=== PATIENT | male | born 1955 | race Caucasian/White ===

== ENCOUNTER 2022-10-08 06:41 | Inpatient (IN) | payer MEDICARE ==
[~2022-10-08] VITALS: Ht 170.2 cm; Wt 110.0 kg
[2022-10-08 07:03] LABS: BASOPHILS # (AUTO) 0.1 10^3/uL (0.0-0.1); BASOPHILS % (AUTO) 0 % (0-10); EOSINOPHILS % (AUTO) 0 % (0-10); HEMATOCRIT 56 % (40-54); HEMOGLOBIN 18.6 g/dL (13.3-17.7); LYMPHOCYTES # (AUTO) 0.6 10^3/uL (1.0-4.0); LYMPHOCYTES % (AUTO) 2 % (12-44); MEAN CORPUSCULAR HEMOGLOBIN 31 pg (25-34); MEAN CORPUSCULAR HGB CONC 33 g/dL (32-36); MEAN CORPUSCULAR VOLUME 93 fL (80-99); MEAN PLATELET VOLUME 10.1 fL (9.0-12.2); MONOCYTES # (AUTO) 1.1 10^3/uL (0.0-1.0); MONOCYTES % (AUTO) 4 % (0-12); NEUTROPHILS % (AUTO) 93 % (42-75); PLATELET COUNT 187 10^3/uL (130-400)
--- NOTE | 2022-10-08 07:03 | ED General ---
General Chief Complaint: General Problems/Pain Stated Complaint: INCOHERENT|SHAKY| FALLING Source of Information: Patient, Spouse (Independent historian as patient was slow to answer questions and did not remember everything from this am) (NABIL CALDWELL MD) History of Present Illness Date Seen by Provider: Oct 08, 2022 Time Seen by Provider: 06:45 Initial Comments 67-year-old male with PMH of HTN/active smoker, is here with complaints of altered mental status, and 2 falls earlier today morning. Patient's states that he has been shaky and appears incoherent to her. In the ER patient is able to answer all questions and follow all commands without too much difficulty. Patient appears lethargic and tired and is febrile. Patient states that he has been having a cold with nasal and chest congestion and cough for the past few days. Denies chest pain, shortness of breath, abdominal pain, nausea and vomiting, diarrhea, dizziness, headache, blurry vision, sensory loss, weakness. Patient does not have any cardiac or stroke history. (ROSEMARIE HOPE MD) Initial Comments Patient's spouse provides independent history on the patient as he was slow to answer questions and did not remember everything about this morning. 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 He had taken a longer time to unload his truck than usual on Saturday as well. Then he seemed to have a cold this weekend. This am he had 2 falls and was not able to make it to the bathroom in time and had urine incontinence. He has been shaking this morning and was febrile at 101F on arrival to ED. He is a smoker but denies shortness of breath, however, he was hypoxic with O2 sat 88-90% on room air on arrival to the ED. He has a medical history of Diabetes on Tradjenta, Hypertension, Hyperlipidemia, Fluid retention that he takes Furosemide to treat. He is allergic to Sulfa antibiotics and they cause a rash and trouble breathing. He does not use home O2 or breathing treatments. Both patient and spouse felt the area on his right srinivasan that started as a small red spot is now larger and hot to touch this am. He has had no drainage from the red area on his leg. (NABIL CALDWELL MD) Allergies and Home Medications Allergies Coded Allergies: Sulfa (Sulfonamide Antibiotics) (Verified Allergy, Severe, Shortness of Breath, 10/08/22) Patient Home Medication List Home Medication List Reviewed: Yes (ROSEMARIE HOPE MD) Home Medication List Reviewed: Yes (NABIL CALDWELL MD) Amlodipine Besylate (Amlodipine Besylate) 10 Mg Tablet, 10 MG PO DAILY, (Reported) Entered as Reported by: PATRICK BOLANOS on 10/08/221427 Last Action: Continued Aspirin (Aspirin EC) 81 Mg Tablet.dr, 81 MG PO DAILY, (Reported) Entered as Reported by: PATRICK BOLANOS on 10/08/221429 Last Action: Continued Furosemide (Furosemide) 40 Mg Tablet, 40 MG PO DAILY, (Reported) Entered as Reported by: PATRICK BOLANOS on 10/08/221436 Last Action: Continued Ketotifen Fumarate (Zaditor) 0.025 % (0.035 %) Drops, 1 DROP OS BID PRN for DRY EYES, (Reported) Entered as Reported by: PATRICK BOLANSO on 10/08/221438 Last Action: Held Linagliptin (Tradjenta) 5 Mg Tablet, 5 MG PO DAILY, (Reported) Entered as Reported by: PATRICK BOLANOS on 10/08/221427 Last Action: Held Lisinopril (Lisinopril) 40 Mg Tablet, 40 MG PO DAILY, (Reported) Entered as Reported by: PATRICK BOLANOS on 10/08/221426 Last Action: Held Mv-Min/Folic/K1/Lycopen/Lutein (Centrum Men 50 Plus Minis Tab) 150 Mcg-30 Mcg- 300 Mcg-150 Mcg Tablet, 1 EACH PO DAILY, (Reported) Entered as Reported by: PATRICK BOLANOS on 10/08/221429 Last Action: Held Nebivolol HCl (Bystolic) 10 Mg Tab, 10 MG PO DAILY, (Reported) Entered as Reported by: PATRICK BOLANOS on 10/08/221427 Last Action: Converted Moore-3/Dha/Epa/Fish Oil (Fish Oil 1,400 mg Softgel) 850 Mg-1,400 Mg Capsule, 1 EACH PO DAILY, (Reported) Entered as Reported by: PATRICK BOLANOS on 7/3/23 1430 Last Action: Converted Rosuvastatin Calcium (Rosuvastatin Calcium) 20 Mg Tablet, 20 MG PO DAILY, (Reported) Entered as Reported by: PATRICK BOLANOS on 10/08/22 1427 Last Action: Continued Vitamin B Complex (B Complex) 1 Each Tablet, 1 EACH PO DAILY, (Reported) Entered as Reported by: PATRICK BOLANOS on 10/08/22 1432 Last Action: Held Review of Systems Review of Systems Constitutional: see HPI, fever, malaise EENTM: see HPI, nose congestion Respiratory: cough Cardiovascular: no symptoms reported Gastrointestinal: no symptoms reported Genitourinary: no symptoms reported Musculoskeletal: no symptoms reported Skin: no symptoms reported Psychiatric/Neurological: Other (AMS) Hematologic/Lymphatic: No Symptoms Reported Immunological/Allergic: no symptoms reported (ROSEMARIE HOPE MD) Constitutional: chills, fever Respiratory: No short of breath Gastrointestinal: No nausea, No vomiting Genitourinary: incontinence (1 episode this am where he did not get to the toilet in time.) Skin: see HPI, change in color (area of redness on his right leg that has increased and gotten hot to touch since Saturday) Psychiatric/Neurological: See HPI (NABIL CALDWELL MD) Past Pxszvjz-Ddzxez-Jljnqk Hx Patient Social History Tobacco Use?: Yes Tobacco type used: Cigarettes Smoking Status: Current Everyday Smoker Substance use?: No (NABIL CALDWELL MD) Seasonal Allergies Seasonal Allergies: Yes (NABIL CALDWELL MD) Past Medical History Surgery/Hospitalization HX: Hypertension, Diabetes non-insulin dependent, Tobacco abuse, Fluid retention, Hyperlipidemia (NABIL CALDWELL MD) Physical Exam Vital Signs Vital Signs - First Documented 10/08/22 10/08/22 06:48 07:23 Temp 38.3 Pulse 87 Resp 20 B/P (MAP) 194/81 (118) Pulse Ox 90 O2 Delivery Room Air O2 Flow Rate 2.00 (NABIL CALDWELL MD) Vital Signs Capillary Refill : (ROSEMARIE HOPE MD) Height, Weight, BMI Height: '" Weight: lbs. oz. kg; BMI Method: General Appearance: No Apparent Distress, WD/WN HEENT: PERRL/EOMI, Normal ENT Inspection Neck: Full Range of Motion, Normal Inspection, Non Tender, Supple Respiratory: Chest Non Tender, Lungs Clear, Normal Breath Sounds, No Accessory Muscle Use, No Respiratory Distress Cardiovascular: Regular Rate, Rhythm Gastrointestinal: Normal Bowel Sounds, Non Tender, Soft Back: No CVA Tenderness Extremity: Normal Range of Motion, Swelling (Right-sided lower extremity shows more swelling than the left with an area of erythema on the anterior lower leg. Not warm to touch.) Neurologic/Psychiatric: Alert, Oriented x3 (Patient able to answer all questions and follow commands in the ER. Patient just appears lethargic.), No Motor/Sensory Deficits, Normal Mood/Affect, taxation accountant II-XII Norm as Tested Skin: Normal Color Lymphatic: No Adenopathy (ROSEMARIE HOPE MD) General Appearance: Obese, Other (slow to answer questions) Cardiovascular: Normal Peripheral Pulses Rectal: Deferred Extremity: No Non Tender (tender, red, warm area to right lower extremity without fluctuance or drainage); Pedal Edema (trace to 1+ BLE edema) Skin: Erythema (right lower extremity anterior srinivasan red, warm, tender to palpation area without fluctuance or drainage) (NABIL CALDWELL MD) Focused Exam Lactate Level 10/08/22 06:50: Lactic Acid Level 1.96 (NABIL CALDWELL MD) Lactic Acid Level Laboratory Tests Test 10/08/22 06:50 Lactic Acid Level 1.96 MMOL/L (0.50-2.00) (NABIL CALDWELL MD) Progress/Results/Core Measures Suspected Sepsis SIRS Temperature: Pulse: Respiratory Rate: Laboratory Tests 10/08/22 06:50: White Blood Count 29.0H Blood Pressure / Mean: 10/08/22 06:50: Lactic Acid Level 1.96 Laboratory Tests 10/08/22 06:50: Creatinine 1.40H, INR Comment 1.3, Platelet Count 187, Total Bilirubin 1.0 (ROSEMARIE HOPE MD) Results/Orders Lab Results Laboratory Tests Test 10/08/22 06:50 10/08/22 08:12 Range/Units White Blood Count 29.0 H 4.3-11.0 10^3/uL Red Blood Count 6.03 H 4.30-5.52 10^6/uL Hemoglobin 18.6 H 13.3-17.7 g/dL Hematocrit 56 H 40-54 % Mean Corpuscular Volume 93 80-99 fL Mean Corpuscular Hemoglobin 31 25-34 pg Mean Corpuscular Hemoglobin Concent 33 32-36 g/dL Red Cell Distribution Width 13.4 10.0-14.5 % Platelet Count 187 130-400 10^3/uL Mean Platelet Volume 10.1 9.0-12.2 fL Immature Granulocyte % (Auto) 1 % Neutrophils (%) (Auto) 93 H 42-75 % Lymphocytes (%) (Auto) 2 L 12-44 % Monocytes (%) (Auto) 4 0-12 % Eosinophils (%) (Auto) 0 0-10 % Basophils (%) (Auto) 0 0-10 % Neutrophils # (Auto) 27.0 H 1.8-7.8 10^3/uL Lymphocytes # (Auto) 0.6 L 1.0-4.0 10^3/uL Monocytes # (Auto) 1.1 H 0.0-1.0 10^3/uL Eosinophils # (Auto) 0.0 0.0-0.3 10^3/uL Basophils # (Auto) 0.1 0.0-0.1 10^3/uL Immature Granulocyte # (Auto) 0.3 H 0.0-0.1 10^3/uL Neutrophils % (Manual) 76 % Lymphocytes % (Manual) 2 % Monocytes % (Manual) 3 % Eosinophils % (Manual) 0 % Basophils % (Manual) 0 % Band Neutrophils 19 % Platelet Estimate NORMAL Rouleau MOD Blood Morphology Comment NORMAL Prothrombin Time 16.5 H 12.2-14.7 SEC INR Comment 1.3 0.8-1.4 Activated Partial Thromboplast Time 29 24-35 SEC Sodium Level 137 135-145 MMOL/L Potassium Level 3.8 3.6-5.0 MMOL/L Chloride Level 98 98-107 MMOL/L Carbon Dioxide Level 25 21-32 MMOL/L Anion Gap 14 5-14 MMOL/L Blood Urea Nitrogen 20 H 7-18 MG/DL Creatinine 1.40 H 0.60-1.30 MG/DL Estimat Glomerular Filtration Rate 56 BUN/Creatinine Ratio 14 Glucose Level 193 H 70-105 MG/DL Lactic Acid Level 1.96 0.50-2.00 MMOL/L Calcium Level 9.6 8.5-10.1 MG/DL Corrected Calcium 10.1 8.5-10.1 MG/DL Magnesium Level 1.8 1.6-2.4 MG/DL Total Bilirubin 1.0 0.1-1.0 MG/DL Aspartate Amino Transf (AST/SGOT) 16 5-34 U/L Alanine Aminotransferase (ALT/SGPT) 20 0-55 U/L Alkaline Phosphatase 98 40-136 U/L Troponin I < 0.30 <0.30 NG/ML Pro-B-Type Natriuretic Peptide 2713.0 H <125.0 PG/ML Total Protein 7.0 6.4-8.2 GM/DL Albumin 3.4 3.2-4.5 GM/DL Serum Alcohol < 10 <10 MG/DL Urine Color DK YELLOW Urine Clarity CLEAR Urine pH 6.0 5-9 Urine Specific [place] >=1.030 1.016-1.022 Urine Protein 3+ H NEGATIVE Urine Glucose (UA) NEGATIVE NEGATIVE Urine Ketones NEGATIVE NEGATIVE Urine Nitrite NEGATIVE NEGATIVE Urine Bilirubin NEGATIVE NEGATIVE Urine Urobilinogen 2.0 < = 1.0 MG/DL Urine Leukocyte Esterase NEGATIVE NEGATIVE Urine RBC (Auto) 3+ H NEGATIVE Urine RBC 25-50 H /HPF Urine WBC NONE /HPF Urine Squamous Epithelial Cells NONE /HPF Urine Crystals NONE /LPF Urine Bacteria FEW H /HPF Urine Casts NONE /LPF Urine Mucus SMALL H /LPF Urine Culture Indicated NO Urine Opiates Screen NEGATIVE NEGATIVE Urine Oxycodone Screen NEGATIVE NEGATIVE Urine Methadone Screen NEGATIVE NEGATIVE Urine Propoxyphene Screen NEGATIVE NEGATIVE Urine Barbiturates Screen NEGATIVE NEGATIVE Ur Tricyclic Antidepressants Screen NEGATIVE NEGATIVE Urine Phencyclidine Screen NEGATIVE NEGATIVE Urine Amphetamines Screen NEGATIVE NEGATIVE Urine Methamphetamines Screen NEGATIVE NEGATIVE Urine Benzodiazepines Screen NEGATIVE NEGATIVE Urine Cocaine Screen NEGATIVE NEGATIVE Urine Cannabinoids Screen NEGATIVE NEGATIVE (NABIL CALDWELL MD) My Orders Orders - NABIL CALDWELL MD O2 (10/08/22 07:20) Ns Iv 1000 Ml (Sodium Chloride 0.9%) (10/08/22 07:35) Albuterol/Ipra Inhalation Soln (Duoneb I (10/08/22 07:35) Acetaminophen Tablet (Tylenol Tablet) (10/08/22 07:35) Piperacillin Sodium/Tazobactam (Zosyn Vi (10/08/22 07:35) Vancomycin Injection (Vancomycin Injecti (10/08/22 07:35) Svn Small Volume Nebulizer (10/08/22 07:35) Ed Admission (Communication) (10/08/22 07:50) (NABIL CALDWELL MD) Vital Signs/I&O 10/08/22 10/08/22 10/08/22 06:48 07:23 07:51 Temp 38.3 38.4 Pulse 87 Resp 20 B/P (MAP) 194/81 (118) Pulse Ox 90 93 O2 Delivery Room Air Nasal Cannula O2 Flow Rate 2.00 (NABIL CALDWELL MD) Vital Signs/I&O Capillary Refill : (ROSEMARIE HOPE MD) Progress Note : Progress Note 1. AMS/ GENERALIZED WEAKNESS: - CT HEAD - CXR: - EKG: non-ischemic - Troponin - CBC/ CMP - UA/ UDS - Lactic acid - Blood cultures sent - Signed out pt to morning physician for follow up of labs and imaging. (ROSEMARIE HOPE MD) Progress Note #1: Time: 07:45 Progress Note I assumed care of the patient at [address] Hope. On review of his test results he had a chest x-ray that radiologist read out as having some cardiomega ly and mild pulmonary vascular congestion but no infiltrate. CT scan of the head without IV contrast showed senescent and microvascular changes but no acute mass, bleeding, stroke. His complete blood count was elevated with a white blood cell count of 29,000 and automated differential of 93%. He appeared to be a little hemoconcentrated with a hemoglobin of 18.6. Platelets were normal at 187. His lactic acid was normal at 1.96. On his comprehensive metabolic profile he did have some mild renal insufficiency and/or dehydration with a creatinine of 20 and a BUN of 1.4. Glucose was slightly elevated to 193. His troponin was negative at less than 0.3. He had a slight increase of his proBNP to 2713. Will add on a Liter of Ns IV fluid bolus for hydration, acetaminophen 1 g p.o. for his fever of 38.3 Celsius on arrival. Placed on supplemental oxygen at 2 L by nasal cannula to help with his hypoxia of 88 to 90% on room air. Try DuoNeb breathing treatment since he is a daily smoker he might have a COPD compo nent that is contributing to his low oxygen and that could also be affecting his mentation. Since he does have SIRS criteria with elevated white blood cell count and hypoxia will treat with Zosyn 4.5 g IV x1 and vancomycin 1 g IV x1 for the cellulitis of the right lower extremity in a diabetic. I called and spoke with Dr. Laureano the on-call hospitalist for [facility] today. I reviewed the above lab and radiology findings and plan. With him having the hypoxia, not having home oxygen, SIRS criteria and diabetes will admit to a [facility] bed for continued antibiotics and supplemental oxygen. Progress Note #2: Progress Note Patient remained stable during ED stay and was more coherent on Oxygen. He had an extended wait in the ED for transport to get him to [facility] due to EMS transporting other patients with higher acuity. (NABIL CALDWELL MD) ECG Initial ECG Impression Date: Oct 08, 2022 Initial ECG Impression Time: 06:56 Initial ECG Rate: 86 Initial ECG Rhythm: Normal Sinus Initial ECG Comparisson: No Previous ECG Available Comment On my personal interpretation and review his electrocardiogram shows a normal sinus rhythm with a heart rate of 86 bpm. [place] interval 194 ms. He has a right bundle branch block and intraventricular conduction delay. He has a QT interval 395 ms and a QTc interval 438 ms. He has no acute ST elevation. There is no prior tracings available for comparison. (NABIL CALDWELL MD) Diagnostic Imaging Diagonstic Imaging: Xray Plain Films/CT/US/NM/MRI: chest Comments [facility], [place] NAME: JOSE A KEARNS [facility] REC#: [id number] PT STATUS: REG ER : 1955 PHYSICIAN: ROSEMARIE HOPE MD ADMIT DATE: 10/08/22/ER FS Draft Date of Exam:10/08/22 CHEST 1 VIEW AP/PA ONLY INDICATION: Altered mental status. No prior examination available for comparison. There is generalized cardiomegaly and mild central pulmonary venous congestion. The mediastinal configuration is unremarkable. There is no pleural effusion, pneumothorax, or pneumonia. The visualized osseous structures are unremarkable. IMPRESSION: Cardiomegaly and mild central pulmonary venous congestion. Dictated on workstation # [id number] Dict: 10/08/22 0710 Trans: 10/08/22 0713 CVB [id number] Interpreted by: PETAR TALAVERA MD Electronically signed by: Reviewed: Reviewed by Me Diagonstic Imaging: CT Plain Films/CT/US/NM/MRI: head Comments [facility], [place] NAME: JOSE A KEARNS REC#: [id number] PT STATUS: REG ER : 1955 PHYSICIAN: ROSEMARIE HOPE MD ADMIT DATE: 10/08/22/ER FS Draft Date of Exam:10/08/22 CT HEAD WO-R/O STROKE PROCEDURE: CT head wo r/o stroke. TECHNIQUE: Multiple contiguous axial images were obtained through the brain without the use of intravenous contrast. Auto Exposure Controls were utilized during the CT exam to meet ALARA standards for radiation dose reduction. INDICATION: Altered mental status No prior examination available for comparison. FINDINGS: There is prominence of the ventricles and sulci. There is no hydrocephalus or cerebral edema. There is no midline shift or mass-effect. There is no intracranial mass, hemorrhage, or extra-axial fluid collection. There is some diffuse decreased attenuation of the periventricular white matter which is nonspecific. The visualized paranasal sinuses and mastoid air cells are clear. There are no regional areas of decreased attenuation appreciated to suggest an acute CVA. IMPRESSION: 1. No acute intracranial process. 2. Age-appropriate atrophy. 3. Decreased attenuation of the periventricular white matter which is nonspecific, however, likely reflects senescent change and/or chronic small vessel ischemic disease. If there is high clinical concern for an acute CVA, further evaluation with MRI should be considered. Dictated on workstation # [id number] Dict: 10/08/22710 Trans: 10/08/22712 CVB [id number] Interpreted by: PETAR TALAVERA MD Electronically signed by: Reviewed: Reviewed by Me (NABIL CALDWELL MD) Departure Communication (Admissions) Time/Spoke to Admitting Phy: 07:45 On review of his test results he had a chest x-ray that radiologist read out as having some cardiomegaly and mild pulmonary vascular congestion but no infiltrate. CT scan of the head without IV contrast showed senescent and microvascular changes but no acute mass, bleeding, stroke. His complete blood count was elevated with a white blood cell count of 29,000 and automated differential of 93%. He appeared to be a little hemoconcentrated with a hemoglobin of 18.6. Platelets were normal at 187. His lactic acid was normal at 1.96. On his comprehensive metabolic profile he did have some mild renal insufficiency and/or dehydration with a creatinine of 20 and a BUN of 1.4. Glucose was slightly elevated to 193. His troponin was negative at less than 0.3. He had a slight increase of his proBNP to 2713. Will add on a Liter of Ns IV fluid bolus for hydration, acetaminophen 1 g p.o. for his fever of 38.3 Celsius on arrival. Placed on supplemental oxygen at 2 L by nasal cannula to help with his hypoxia of 88 to 90% on room air. Try DuoNeb breathing treatment since he is a daily smoker he might have a COPD component that is contributing to his low oxygen and that could also be affecting his mentation. Since he does have SIRS criteria with elevated white blood cell count and hypoxia will treat with Zosyn 4.5 g IV x1 and vancomycin 1 g IV x1 for the cellulitis of the right lower extremity in a diabetic. I called and spoke with Dr. Laureano the on-call hospitalist for [facility] today. I reviewed the above lab and radiology findings and plan. With him having the hypoxia, not having home oxygen, SIRS criteria and diabetes will admit to a [facility] bed for continued antibiotics and supplemental oxygen. (NABIL CALDWELL MD) Impression Primary Impression: Cellulitis of right lower extremity Additional Impressions: AMS (altered mental status) Qualified Codes: R41.82 - Altered mental status, unspecified Generalized weakness SIRS due to infectious process without acute organ dysfunction Hypoxemia Renal insufficiency Disposition: 30 STILL A PATIENT Condition: Stable Admissions Decision to Admit Reason: Admit from ER (General) Decision to Admit/Date: Oct 08, 2022 Time/Decision to Admit Time: 07:45 (NABIL CALDWELL MD) Departure-Patient Inst. Referrals: MARCOS NEVILLE MD (PCP/Family) Primary Care Physician ROSEMARIE HOPE MD Oct 08, 2022 07:03 NABIL CALDWELL MD Oct 08, 2022 07:50
--- NOTE | 2022-10-08 07:13 | Diagnostic Imaging Report ---
PROCEDURE: CT head wo r/o stroke. TECHNIQUE: Multiple contiguous axial images were obtained through the brain without the use of intravenous contrast. Auto Exposure Controls were utilized during the CT exam to meet ALARA standards for radiation dose reduction. INDICATION: Altered mental status No prior examination available for comparison. FINDINGS: There is prominence of the ventricles and sulci. There is no hydrocephalus or cerebral edema. There is no midline shift or mass-effect. There is no intracranial mass, hemorrhage, or extra-axial fluid collection. There is some diffuse decreased attenuation of the periventricular white matter which is nonspecific. The visualized paranasal sinuses and mastoid air cells are clear. There are no regional areas of decreased attenuation appreciated to suggest an acute CVA. IMPRESSION: 1. No acute intracranial process. 2. Age-appropriate atrophy. 3. Decreased attenuation of the periventricular white matter which is nonspecific, however, likely reflects senescent change and/or chronic small vessel ischemic disease. If there is high clinical concern for an acute CVA, further evaluation with MRI should be considered. Dictated by: Dictated on workstation # [id number]
--- NOTE | 2022-10-08 07:13 | Diagnostic Imaging Report ---
INDICATION: Altered mental status. No prior examination available for comparison. There is generalized cardiomegaly and mild central pulmonary venous congestion. The mediastinal configuration is unremarkable. There is no pleural effusion, pneumothorax, or pneumonia. The visualized osseous structures are unremarkable. IMPRESSION: Cardiomegaly and mild central pulmonary venous congestion. Dictated by: Dictated on workstation # [id number]
[2022-10-08 07:22] LABS: INR 1.3 (0.8-1.4); PROTHROMBIN TIME PATIENT 16.5 SEC (12.2-14.7)
[2022-10-08] MEDS ORDERED: VANCOMYCIN INJECTION 1,000 MG in NS (IVPB) 250 ML IV STA (07:35)
[2022-10-08] MEDS ORDERED: PIPERACILLIN SODIUM/TAZOBACTAM 4.5 GM in NS (IVPB) 100 ML IV STA (07:35)
[2022-10-08] MEDS ORDERED: NS IV 1000 ML 1,000 ML IV STA (07:35)
[2022-10-08] MEDS ORDERED: RT-ALBUTEROL/IPRATROPIUM 3 ML (DUONEB) VIAL INH STA (07:35)
[2022-10-08] MEDS ORDERED: ACETAMINOPHEN 500 MG TAB (TYLENOL) PO STA (07:35)
[2022-10-08 07:36] LABS: ALANINE AMINOTRANSFERASE 20 U/L (0-55); ALKALINE PHOSPHATASE 98 U/L (40-136); BUN/CREATININE RATIO 14; CALCIUM 9.6 MG/DL (8.5-10.1); CARBON DIOXIDE 25 MMOL/L (21-32); CHLORIDE 98 MMOL/L (98-107); GFR ESTIMATED 56; GLUCOSE 193 MG/DL (70-105); MAGNESIUM 1.8 MG/DL (1.6-2.4); POTASSIUM 3.8 MMOL/L (3.6-5.0); SODIUM 137 MMOL/L (135-145)
[2022-10-08 07:37] LABS: ALBUMIN 3.4 GM/DL (3.2-4.5)
[2022-10-08 07:51] LABS: BAND NEUTROPHILS 19 %; NEUTROPHILS % (MANUAL) 76 %
[2022-10-08 07:52] LABS: BASOPHILS % (MANUAL) 0 %; EOSINOPHILS % (MANUAL) 0 %; LYMPHOCYTES % (MANUAL) 2 %; MONOCYTES % (MANUAL) 3 %; PLATELET ESTIMATE NORMAL; RBC MORPH NORMAL; ROULEAUX MOD
[2022-10-08 08:17] LABS: BILIRUBIN,URINE NEGATIVE (NEGATIVE); CLARITY,URINE CLEAR; GLUCOSE, URINE (UA) NEGATIVE (NEGATIVE); KETONES,URINE NEGATIVE (NEGATIVE); LEUKOCYTE ESTERASE ,URINE NEGATIVE (NEGATIVE); NITRITE,URINE NEGATIVE (NEGATIVE); PROTEIN,URINE 3+ (NEGATIVE)
[2022-10-08 08:23] LABS: COLOR,URINE DK YELLOW
[2022-10-08 08:26] LABS: BACTERIA,URINE FEW /HPF; RBC,URINE 25-50 /HPF
[2022-10-08 08:29] LABS: AMPHETAMINE SCREEN, URINE NEGATIVE (NEGATIVE); BARBITURATE SCREEN URINE NEGATIVE (NEGATIVE); BENZODIAZEPINES SCREEN URINE NEGATIVE (NEGATIVE); CANNABINOID SCREEN, URINE NEGATIVE (NEGATIVE); COCAINE SCREEN URINE NEGATIVE (NEGATIVE); METHADONE STAT NEGATIVE (NEGATIVE); OPIATE SCREEN URINE NEGATIVE (NEGATIVE); OXYCODONE STAT NEGATIVE (NEGATIVE); PROPOXYPHENE STAT NEGATIVE (NEGATIVE); TRICYCLIC ANTIDEPRESSANTS SCRE NEGATIVE (NEGATIVE)
[2022-10-08] MEDS ORDERED: VANCOMYCIN INJECTION 0.1 MG in NS (IVPB) 250 ML IV SCH (11:45)
[2022-10-08] MEDS: VANCOMYCIN 1500MG/300ML PREMIX IV SCH (13:38)
[2022-10-08 13:45] VITALS: BP 160/74
--- NOTE | 2022-10-08 14:24 | History & Physical ---
HPI History of Present Illness: Pt states he came to the hospital because "I was being stupid". states he was incoherent and shaking, his blood sugar was 215. Started Saturday morning, but worse today, was trying to drink out of his medicine bottle, couldn't answer simple questions. He was shaking but they didn't think to take his temperature. He was just wanting to sleep, hard to wake up. noticed large red raymond on leg Saturday morning. Source: patient, family Date seen by provider: Oct 08, 2022 Time Seen by Provider: 14:20 Attending Physician Skylar Toro MD PCP Admitting Physician: Matt Laureano MD Attending Physician: Matt Laureano MD Consult Date of Admission Oct 08, 2022 at 11:09 Home Medications Home Medications Reviewed patient Home Medication Reconciliation performed by pharmacy medication reconciliations master technician and/or nursing. Patients Allergies have been reviewed. Allergies Coded Allergies: Sulfa (Sulfonamide Antibiotics) (Verified Allergy, Severe, Shortness of Breath, 10/08/22) [id number] Hx Patient Social History Smoking Status: Heavy Tobacco Smoker Alcohol Use?: No Tobacco type used: Cigarettes Immunizations Up To Date Influenza Vaccine Up-to-Date: No; Not Current Past Medical History PMHx: HTN HLD Prediabetes SurgHx: Appendectomy at age 10 Incarcerated abdominal hernia 2004 Family Medical History Significant Family History: Heart Disease, Diabetes Review of Systems ([facility]) Constitutional: malaise EENTM: nose congestion; No throat pain Respiratory: No cough, No short of breath Cardiovascular: No chest pain Gastrointestinal: No abdominal pain, No constipation, No diarrhea, No nausea, No vomiting Genitourinary: No dysuria Musculoskeletal: joint pain (chronic), muscle pain (chronic) Skin: see HPI Reviewed Test Results Reviewed Test Results Lab Laboratory Tests Test 10/08/22 06:50 10/08/22 08:12 Range/Units White Blood Count 29.0 H 4.3-11.0 10^3/uL Red Blood Count 6.03 H 4.30-5.52 10^6/uL Hemoglobin 18.6 H 13.3-17.7 g/dL Hematocrit 56 H 40-54 % Mean Corpuscular Volume 93 80-99 fL Mean Corpuscular Hemoglobin 31 25-34 pg Mean Corpuscular Hemoglobin Concent 33 32-36 g/dL Red Cell Distribution Width 13.4 10.0-14.5 % Platelet Count 187 130-400 10^3/uL Mean Platelet Volume 10.1 9.0-12.2 fL Immature Granulocyte % (Auto) 1 % Neutrophils (%) (Auto) 93 H 42-75 % Lymphocytes (%) (Auto) 2 L 12-44 % Monocytes (%) (Auto) 4 0-12 % Eosinophils (%) (Auto) 0 0-10 % Basophils (%) (Auto) 0 0-10 % Neutrophils # (Auto) 27.0 H 1.8-7.8 10^3/uL Lymphocytes # (Auto) 0.6 L 1.0-4.0 10^3/uL Monocytes # (Auto) 1.1 H 0.0-1.0 10^3/uL Eosinophils # (Auto) 0.0 0.0-0.3 10^3/uL Basophils # (Auto) 0.1 0.0-0.1 10^3/uL Immature Granulocyte # (Auto) 0.3 H 0.0-0.1 10^3/uL Neutrophils % (Manual) 76 % Lymphocytes % (Manual) 2 % Monocytes % (Manual) 3 % Eosinophils % (Manual) 0 % Basophils % (Manual) 0 % Band Neutrophils 19 % Platelet Estimate NORMAL Rouleau MOD Blood Morphology Comment NORMAL Prothrombin Time 16.5 H 12.2-14.7 SEC INR Comment 1.3 0.8-1.4 Activated Partial Thromboplast Time 29 24-35 SEC Sodium Level 137 135-145 MMOL/L Potassium Level 3.8 3.6-5.0 MMOL/L Chloride Level 98 98-107 MMOL/L Carbon Dioxide Level 25 21-32 MMOL/L Anion Gap 14 5-14 MMOL/L Blood Urea Nitrogen 20 H 7-18 MG/DL Creatinine 1.40 H 0.60-1.30 MG/DL Estimat Glomerular Filtration Rate 56 BUN/Creatinine Ratio 14 Glucose Level 193 H 70-105 MG/DL Lactic Acid Level 1.96 0.50-2.00 MMOL/L Calcium Level 9.6 8.5-10.1 MG/DL Corrected Calcium 10.1 8.5-10.1 MG/DL Magnesium Level 1.8 1.6-2.4 MG/DL Total Bilirubin 1.0 0.1-1.0 MG/DL Aspartate Amino Transf (AST/SGOT) 16 5-34 U/L Alanine Aminotransferase (ALT/SGPT) 20 0-55 U/L Alkaline Phosphatase 98 40-136 U/L Troponin I < 0.30 <0.30 NG/ML Pro-B-Type Natriuretic Peptide 2713.0 H <125.0 PG/ML Total Protein 7.0 6.4-8.2 GM/DL Albumin 3.4 3.2-4.5 GM/DL Serum Alcohol < 10 <10 MG/DL Urine Color DK YELLOW Urine Clarity CLEAR Urine pH 6.0 5-9 Urine Specific [place] >=1.030 1.016-1.022 Urine Protein 3+ H NEGATIVE Urine Glucose (UA) NEGATIVE NEGATIVE Urine Ketones NEGATIVE NEGATIVE Urine Nitrite NEGATIVE NEGATIVE Urine Bilirubin NEGATIVE NEGATIVE Urine Urobilinogen 2.0 < = 1.0 MG/DL Urine Leukocyte Esterase NEGATIVE NEGATIVE Urine RBC (Auto) 3+ H NEGATIVE Urine RBC 25-50 H /HPF Urine WBC NONE /HPF Urine Squamous Epithelial Cells NONE /HPF Urine Crystals NONE /LPF Urine Bacteria FEW H /HPF Urine Casts NONE /LPF Urine Mucus SMALL H /LPF Urine Culture Indicated NO Urine Opiates Screen NEGATIVE NEGATIVE Urine Oxycodone Screen NEGATIVE NEGATIVE Urine Methadone Screen NEGATIVE NEGATIVE Urine Propoxyphene Screen NEGATIVE NEGATIVE Urine Barbiturates Screen NEGATIVE NEGATIVE Ur Tricyclic Antidepressants Screen NEGATIVE NEGATIVE Urine Phencyclidine Screen NEGATIVE NEGATIVE Urine Amphetamines Screen NEGATIVE NEGATIVE Urine Methamphetamines Screen NEGATIVE NEGATIVE Urine Benzodiazepines Screen NEGATIVE NEGATIVE Urine Cocaine Screen NEGATIVE NEGATIVE Urine Cannabinoids Screen NEGATIVE NEGATIVE Radiology CT head 10/08/22: IMPRESSION: 1. No acute intracranial process. 2. Age-appropriate atrophy. 3. Decreased attenuation of the periventricular white matter which is nonspecific, however, likely reflects senescent change and/or chronic small vessel ischemic disease. If there is high clinical concern for an acute CVA, further evaluation with MRI should be considered. CXR 10/08/22: IMPRESSION: Cardiomegaly and mild central pulmonary venous congestion. Physical Exam-([facility]) Physical Exam Vital Signs VS - Last 72 Hours, by Label 10/08/22 10/08/22 10/08/22 10/08/22 06:48 07:23 07:51 10:45 Temp 38.3 38.4 37.6 Pulse 87 76 Resp 20 15 B/P (MAP) 194/81 (118) 139/95 Pulse Ox 90 93 96 O2 Delivery Room Air Nasal Cannula Nasal Cannula O2 Flow Rate 2.00 2.00 10/08/22 10/08/22 11:15 13:45 Temp 36.9 Pulse 63 Resp 19 B/P (MAP) 160/74 (102) Pulse Ox 96 O2 Delivery Nasal Cannula Nasal Cannula O2 Flow Rate 2.00 2.00 Capillary Refill : Less Than 3 Seconds General Appearance: WD/WN, no apparent distress Respiratory: lungs clear, normal breath sounds Cardiovascular: regular rate, rhythm, no murmur Peripheral Pulses: 2+ Dorsalis Pedis (R), 2+ Left Dors-Pedis (L) Gastrointestinal: normal bowel sounds, non tender, distended Extremities: normal capillary refill, pedal edema (trace to 1+) Neurologic/Psychiatric: alert, normal mood/affect, oriented x 3 Skin: other (circumferential area of erythema on right lower leg) Assessment/Plan Assessment/Plan Admission Status: Inpatient Order (span 2 midnights) Reason for Inpatient Admission: sepsis (1) Sepsis Status: Acute Assessment & Plan: Secondary to cellulitis (2) Cellulitis of right lower extremity Status: Acute Assessment & Plan: Started on Zosyn and Vancomycin on admit. (3) Hypoxemia Status: Acute Assessment & Plan: Uncertain etiology, not on home O2, possibly some pulmonary edema, resume home lasix and monitor closely. (4) Renal insufficiency Status: Acute Assessment & Plan: Suspect secondary to sepsis and hypovolemia from poor intake. Will give IVF and monitor closely given pulmonary edema. (5) Diabetes mellitus, type 2 Status: Chronic Assessment & Plan: Diabetic diet, sliding scale insulin (6) Hypertension Status: Chronic Assessment & Plan: Resume home meds Qualifiers: Qualified Codes: I10 - Essential (primary) hypertension (7) Chronic kidney disease Status: Chronic Assessment & Plan: Baseline creatinine in clinic appears to be around 1.3 (8) DVT prophylaxis Status: Acute Assessment & Plan: Enoxaparin MATT LAUREANO MD Oct 08, 2022 14:24
[2022-10-08] MEDS ORDERED: LISI40TA9 PO (14:27)
[2022-10-08] MEDS ORDERED: ROSU20TA32 PO (14:27)
[2022-10-08] MEDS ORDERED: NFNEB10T PO (14:28)
[2022-10-08] MEDS ORDERED: LINA5TAB PO (14:28)
[2022-10-08] MEDS ORDERED: AMLO-251 PO (14:28)
[2022-10-08] MEDS ORDERED: FLUT16SP22 NS (14:29)
[2022-10-08] MEDS ORDERED: AZEL137S11 NS (14:29)
[2022-10-08] MEDS ORDERED: ASPI-1238 PO (14:30)
[2022-10-08] MEDS ORDERED: ONDANSETRON 4 MG (ZOFRAN) ORAL DISSOLVE TAB PO PRN (14:30)
[2022-10-08] MEDS ORDERED: MV-M-9 PO (14:30)
[2022-10-08] MEDS ORDERED: [UNRECOGNIZED DRUG - CODE] PO (14:30)
[2022-10-08] MEDS ORDERED: VITA0.4T2 PO (14:31)
[2022-10-08] MEDS ORDERED: VITA-189 PO (14:32)
[2022-10-08] MEDS ORDERED: FURO40TA4 PO (14:37)
[2022-10-08] MEDS ORDERED: KETO5DRO70 OS (14:39)
[2022-10-08] MEDS: PIPERACILLIN SODIUM/TAZOBACTAM 4.5 GM in NS (IVPB) 100 ML IV SCH ×2 (15:06→21:52)
[2022-10-08 16:00] VITALS: BP 184/73
[2022-10-08] MEDS: NS IV 1000 ML 1,000 ML IV SCH (16:01)
[2022-10-08] MEDS: ENOXAPARIN 40 MG/0.4 ML (LOVENOX) SYR SQ SCH (16:02)
[2022-10-08] MEDS: inSUlin ASPART (NovoLOG) 1 UNIT/0.01 ML (CHARGE PER UNIT) SC SCH ×2 (16:06→21:06)
[2022-10-08 19:21] VITALS: BP 156/77
[2022-10-08] MEDS: ACETAMINOPHEN 500 MG TAB (TYLENOL) PO PRN (21:06)
[2022-10-08 23:22] VITALS: BP 158/76
[2022-10-09] MEDS: NS IV 1000 ML 1,000 ML IV SCH (02:57)
[2022-10-09 04:02] VITALS: BP 166/79
[2022-10-09] MEDS: PIPERACILLIN SODIUM/TAZOBACTAM 4.5 GM in NS (IVPB) 100 ML IV SCH ×3 (05:49→20:41)
[2022-10-09] MEDS: inSUlin ASPART (NovoLOG) 1 UNIT/0.01 ML (CHARGE PER UNIT) SC SCH ×4 (05:50→20:41)
[2022-10-09 06:09] LABS: BASOPHILS # (AUTO) 0.1 10^3/uL (0.0-0.1); BASOPHILS % (AUTO) 0 % (0-10); EOSINOPHILS # (AUTO) 0.1 10^3/uL (0.0-0.3); EOSINOPHILS % (AUTO) 0 % (0-10); HEMATOCRIT 52 % (40-54); HEMOGLOBIN 16.7 g/dL (13.3-17.7); LYMPHOCYTES # (AUTO) 0.8 10^3/uL (1.0-4.0); LYMPHOCYTES % (AUTO) 4 % (12-44); MEAN CORPUSCULAR HEMOGLOBIN 31 pg (25-34); MEAN CORPUSCULAR HGB CONC 32 g/dL (32-36); MEAN CORPUSCULAR VOLUME 96 fL (80-99); MEAN PLATELET VOLUME 10.2 fL (9.0-12.2); MONOCYTES # (AUTO) 1.3 10^3/uL (0.0-1.0); MONOCYTES % (AUTO) 7 % (0-12); NEUTROPHILS # (AUTO) 17.6 10^3/uL (1.8-7.8); NEUTROPHILS % (AUTO) 88 % (42-75); PLATELET COUNT 145 10^3/uL (130-400); WHITE BLOOD COUNT 19.9 10^3/uL (4.3-11.0)
[2022-10-09 06:33] LABS: ALBUMIN 3.2 GM/DL (3.2-4.5); BILIRUBIN,TOTAL 0.8 MG/DL (0.1-1.0); CALCIUM 9.1 MG/DL (8.5-10.1); CREATININE SERUM 1.38 MG/DL (0.60-1.30); POTASSIUM 3.6 MMOL/L (3.6-5.0); TOTAL PROTEIN 6.1 GM/DL (6.4-8.2)
[2022-10-09 07:36] VITALS: BP 174/84
[2022-10-09] MEDS: OMEGA 3 (FISH OIL) 1000 MG CAP PO SCH (08:55)
[2022-10-09] MEDS: ASPIRIN E.C. 81 MG (ECOTRIN) TAB PO SCH (08:55)
[2022-10-09] MEDS: amLODIPine 10 MG (NORVASC) TAB PO SCH (08:55)
[2022-10-09] MEDS: FUROSEMIDE 40 MG (LASIX) TAB PO SCH (08:55)
[2022-10-09] MEDS: ACETAMINOPHEN 500 MG TAB (TYLENOL) PO PRN ×2 (08:56→18:30)
[2022-10-09] MEDS: ROSUVASTATIN 20 MG (CRESTOR) TABLET PO SCH (08:56)
[2022-10-09] MEDS ORDERED: NON-FORMULARY MEDICATION 1 EA EA (Omega-3/Dha/Epa/Fish Oil (Fish Oil 1,400 mg Softgel) 1 E PO SCH (09:00)
[2022-10-09] MEDS ORDERED: NON-FORMULARY MEDICATION 1 EA EA (Nebivolol HCl (Bystolic) 10 MG) PO SCH (09:00)
[2022-10-09 11:20] VITALS: BP 131/71
--- NOTE | 2022-10-09 12:52 | Progress Note ---
Subjective Subjective/Events-last exam Pt states he is feeling better, able to walk some today and to touch leg. States breathing feels okay. Focused Exam Lactate Level 10/08/22 06:50: Lactic Acid Level 1.96 Objective Exam Last Set of Vital Signs Vital Signs Date Time Temp Pulse Resp B/P (MAP) Pulse Ox O2 Delivery O2 Flow Rate FiO2 10/09/22 11:20 36.8 60 18 131/71 (91) 95 Nasal Cannula 2.00 Capillary Refill : Less Than 3 Seconds I&O Intake and Output 10/09/22 00:00 Intake Total 1640 ml Output Total 700 ml Balance 940 ml Intake Oral 1240 ml IV Total 400 ml Output Urine Total 700 ml # Voids 1 Daily Weight Change No General: Alert, No Acute Distress Lungs: Other (end expiratory wheeze) Heart: Regular Rate, No Murmurs Skin: Other (right lower leg with circumferential erythema, less intense than yesterday, central area on front of srinivasan darker red than remainder, 2+ pedal pulse and trace to 1+ pitting edema) Results/Procedures Lab Laboratory Tests 10/08/22 15:55: Glucometer 155H 10/08/22 20:51: Glucometer 180H 10/08/22 23:20: Glucometer 135H 10/09/22 05:13: Glucometer 126H 10/09/22 05:40: White Blood Count 19.9H, Red Blood Count 5.39, Hemoglobin 16.7, Hematocrit 52, Mean Corpuscular Volume 96, Mean Corpuscular Hemoglobin 31, Mean Corpuscular Hemoglobin Concent 32, Red Cell Distribution Width 13.6, Platelet Count 145, Mean Platelet Volume 10.2, Immature Granulocyte % (Auto) 1, Neutrophils (%) (Auto) 88H, Lymphocytes (%) (Auto) 4L, Monocytes (%) (Auto) 7, Eosinophils (%) (Auto) 0, Basophils (%) (Auto) 0, Neutrophils # (Auto) 17.6H, Lymphocytes # (Auto) 0.8L, Monocytes # (Auto) 1.3H, Eosinophils # (Auto) 0.1, Basophils # (Auto) 0.1, Immature Granulocyte # (Auto) 0.1, Sodium Level 137, Potassium Level 3.6, Chloride Level 103, Carbon Dioxide Level 25, Anion Gap 9, Blood Urea Nitrogen 20H, Creatinine 1.38H, Estimat Glomerular Filtration Rate 57, BUN/Creatinine Ratio 14, Glucose Level 124H, Calcium Level 9.1, Corrected Calcium 9.7, Total Bilirubin 0.8, Aspartate Amino Transf (AST/SGOT) 23, Alanine Aminotransferase (ALT/SGPT) 19, Alkaline Phosphatase 84, Total Protein 6.1L, Albumin 3.2 10/09/22 10:29: Glucometer 189H Radiology CT head 10/08/22: IMPRESSION: 1. No acute intracranial process. 2. Age-appropriate atrophy. 3. Decreased attenuation of the periventricular white matter which is nonspecific, however, likely reflects senescent change and/or chronic small vessel ischemic disease. If there is high clinical concern for an acute CVA, further evaluation with MRI should be considered. CXR 10/08/22: IMPRESSION: Cardiomegaly and mild central pulmonary venous congestion. Assessment/Plan Assessment/Plan (1) Sepsis Status: Acute Assessment & Plan: Secondary to cellulitis (2) Cellulitis of right lower extremity Status: Acute Assessment & Plan: Started on Zosyn and Vancomycin on admit. Mild improvement today. (3) Hypoxemia Status: Acute Assessment & Plan: Uncertain etiology, not on home O2, possibly some pulmonary edema, resume home lasix and monitor closely. (4) Renal insufficiency Status: Acute Assessment & Plan: Suspect secondary to sepsis and hypovolemia from poor intake. Will give IVF and monitor closely given pulmonary edema. 10/09 stable, baseline creatinine in clinic appears to be 1.3, will stop IVF. (5) Diabetes mellitus, type 2 Status: Chronic Assessment & Plan: Diabetic diet, sliding scale insulin. Pt declining insulin, requesting home med, restarted. (6) Hypertension Status: Chronic Assessment & Plan: Resume home meds Qualifiers: Qualified Codes: I10 - Essential (primary) hypertension (7) Chronic kidney disease Status: Chronic Assessment & Plan: Baseline creatinine in clinic appears to be around 1.3 (8) DVT prophylaxis Status: Acute Assessment & Plan: Enoxaparin MATT AMAYA MD Oct 09, 2022 12:52
[2022-10-09] MEDS: VANCOMYCIN 1500MG/300ML PREMIX IV SCH (13:42)
[2022-10-09 15:20] VITALS: BP 142/67
[2022-10-09] MEDS: ENOXAPARIN 40 MG/0.4 ML (LOVENOX) SYR SQ SCH (15:56)
[2022-10-09 20:05] VITALS: BP 146/62
[2022-10-09 23:07] VITALS: BP 158/82
[2022-10-10] MEDS: ACETAMINOPHEN 500 MG TAB (TYLENOL) PO PRN ×2 (02:58→17:02)
[2022-10-10 03:27] VITALS: BP 159/77
[2022-10-10 05:41] LABS: BASOPHILS # (AUTO) 0.1 10^3/uL (0.0-0.1); BASOPHILS % (AUTO) 0 % (0-10); EOSINOPHILS # (AUTO) 0.2 10^3/uL (0.0-0.3); EOSINOPHILS % (AUTO) 1 % (0-10); HEMATOCRIT 47 % (40-54); HEMOGLOBIN 15.6 g/dL (13.3-17.7); LYMPHOCYTES # (AUTO) 0.8 10^3/uL (1.0-4.0); LYMPHOCYTES % (AUTO) 5 % (12-44); MEAN CORPUSCULAR HEMOGLOBIN 31 pg (25-34); MEAN CORPUSCULAR HGB CONC 33 g/dL (32-36); MEAN CORPUSCULAR VOLUME 95 fL (80-99); MEAN PLATELET VOLUME 10.3 fL (9.0-12.2); MONOCYTES % (AUTO) 6 % (0-12); NEUTROPHILS # (AUTO) 14.5 10^3/uL (1.8-7.8); NEUTROPHILS % (AUTO) 87 % (42-75); PLATELET COUNT 144 10^3/uL (130-400); WHITE BLOOD COUNT 16.7 10^3/uL (4.3-11.0)
[2022-10-10 05:46] LABS: POTASSIUM 3.3 MMOL/L (3.6-5.0)
[2022-10-10 05:47] LABS: CALCIUM 8.9 MG/DL (8.5-10.1)
[2022-10-10 05:48] LABS: TOTAL PROTEIN 5.9 GM/DL (6.4-8.2)
[2022-10-10 05:50] LABS: BILIRUBIN,TOTAL 0.5 MG/DL (0.1-1.0)
[2022-10-10 05:52] LABS: CREATININE SERUM 1.11 MG/DL (0.60-1.30)
[2022-10-10] MEDS: inSUlin ASPART (NovoLOG) 1 UNIT/0.01 ML (CHARGE PER UNIT) SC SCH ×4 (06:01→21:45)
[2022-10-10] MEDS: PIPERACILLIN SODIUM/TAZOBACTAM 4.5 GM in NS (IVPB) 100 ML IV SCH ×3 (06:09→21:04)
[2022-10-10 07:09] VITALS: BP 148/72
[2022-10-10] MEDS: ASPIRIN E.C. 81 MG (ECOTRIN) TAB PO SCH (09:05)
[2022-10-10] MEDS: ROSUVASTATIN 20 MG (CRESTOR) TABLET PO SCH (09:05)
[2022-10-10] MEDS: FUROSEMIDE 40 MG (LASIX) TAB PO SCH (09:06)
[2022-10-10] MEDS: amLODIPine 10 MG (NORVASC) TAB PO SCH (09:06)
[2022-10-10] MEDS: OMEGA 3 (FISH OIL) 1000 MG CAP PO SCH (09:06)
[2022-10-10 11:17] VITALS: BP 172/81
[2022-10-10] MEDS ORDERED: TROUGH ORDER-PHARMACY XX ONE (12:00)
[2022-10-10] MEDS ORDERED: VANCOMYCIN 1500MG/300ML PREMIX 300 ML IV ONE (14:06)
[2022-10-10] MEDS: VANCOMYCIN 1500MG/300ML PREMIX IV SCH ×2 (14:08→23:54)
[2022-10-10 15:45] VITALS: BP 176/84
[2022-10-10] MEDS: ENOXAPARIN 40 MG/0.4 ML (LOVENOX) SYR SQ SCH (17:01)
--- NOTE | 2022-10-10 17:58 | Progress Note ---
Subjective Subjective/Events-last exam States that he is wanting to go home. Redness and pain is some better but he has not been up out of bed. Tolerating PO diet. Still on oxygen and does not have a home oxygen requirement Review of Systems General: Fatigue Pulmonary: No Dyspnea, No Cough Cardiovascular: Edema; No: Chest Pain, Palpitations Gastrointestinal: No: Nausea, Vomiting, Abdominal Pain, Diarrhea, Constipation Musculoskeletal: leg pain Neurological: Weakness, Incoordination Focused Exam Lactate Level 10/08/22 06:50: Lactic Acid Level 1.96 Objective Exam Last Set of Vital Signs Vital Signs Date Time Temp Pulse Resp B/P (MAP) Pulse Ox O2 Delivery O2 Flow Rate FiO2 10/10/22 15:45 37.8 75 18 176/84 (114) 93 Nasal Cannula 1.00 Capillary Refill : Less Than 3 Seconds I&O Intake and Output 10/10/22 00:00 Intake Total 3295 ml Output Total 1995 ml Balance 1300 ml Intake Oral 2095 ml IV Total 1200 ml Output Urine Total 1995 ml # Voids 3 General: Alert, Oriented X3, No Acute Distress Lungs: Normal Air Movement, Other (basilar wheezing, normal work of breathing at rest) Heart: Regular Rate, No Murmurs Abdomen: Normal Bowel Sounds, Soft, No Tenderness Extremities: Other (RLE: erythema and moderate ttp with some bollae formation, 2+ pitting edema bilaterally) Neuro: Normal Speech Results/Procedures Lab Laboratory Tests 10/09/22 20:04: Glucometer 216H 10/10/22 05:25: White Blood Count 16.7H, Red Blood Count 5.00, Hemoglobin 15.6, Hematocrit 47, Mean Corpuscular Volume 95, Mean Corpuscular Hemoglobin 31, Mean Corpuscular H emoglobin Concent 33, Red Cell Distribution Width 13.5, Platelet Count 144, Mean Platelet Volume 10.3, Immature Granulocyte % (Auto) 1, Neutrophils (%) (Auto) 87H, Lymphocytes (%) (Auto) 5L, Monocytes (%) (Auto) 6, Eosinophils (%) (Auto) 1, Basophils (%) (Auto) 0, Neutrophils # (Auto) 14.5H, Lymphocytes # (Auto) 0.8L , Monocytes # (Auto) 1.0, Eosinophils # (Auto) 0.2, Basophils # (Auto) 0.1, Immature Granulocyte # (Auto) 0.1, Sodium Level 138, Potassium Level 3.3L, Chloride Level 105, Carbon Dioxide Level 24, Anion Gap 9, Blood Urea Nitrogen 18, Creatinine 1.11, Estimat Glomerular Filtration Rate 74, BUN/Creatinine Ratio 16, Glucose Level 165H, Calcium Level 8.9, Corrected Calcium 9.7, Total Bilirubin 0.5, Aspartate Amino Transf (AST/SGOT) 18, Alanine Aminotransferase (ALT/SGPT) 17, Alkaline Phosphatase 71, Total Protein 5.9L, Albumin 3.0L 10/10/22 05:52: Glucometer 192H 10/10/22 12:00: Vancomycin Level Trough 6.5L 10/10/22 15:52: Glucometer 194H Microbiology 10/08/22 Blood Culture - Preliminary, Resulted No growth 10/08/22 Urine Culture - Final, Complete NO GROWTH Radiology CT head 10/08/22: IMPRESSION: 1. No acute intracranial process. 2. Age-appropriate atrophy. 3. Decreased attenuation of the periventricular white matter which is nonspecific, however, likely reflects senescent change and/or chronic small vessel ischemic disease. If there is high clinical concern for an acute CVA, further evaluation with MRI should be considered. CXR 10/08/22: IMPRESSION: Cardiomegaly and mild central pulmonary venous congestion. Assessment/Plan Assessment/Plan (1) Sepsis Status: Acute Assessment & Plan: Secondary to cellulitis 10/10: Cellulitis improving, Will continue IV antibiotics, Leukocytosis trending down Qualifiers: Qualified Codes: A41.9 - Sepsis, unspecified organism (2) Cellulitis of right lower extremity Status: Acute Assessment & Plan: Started on Zosyn and Vancomycin on admit. Mild improvement today. (3) Hypoxemia Status: Acute Assessment & Plan: Uncertain etiology, not on home O2, possibly some pulmonary edema, resume home lasix and monitor closely. 10/10: Titrate as tolerated, likely has underlying COPD due to [employer] tobacco use (4) Renal insufficiency Status: Resolved Assessment & Plan: Suspect secondary to sepsis and hypovolemia from poor intake. Will give IVF and monitor closely given pulmonary edema. 10/09 stable, baseline creatinine in clinic appears to be 1.3, will stop IVF. (5) Diabetes mellitus, type 2 Status: Chronic Assessment & Plan: Diabetic diet, sliding scale insulin. Pt declining insulin, requesting home med, restarted. (6) Hypertension Status: Chronic Assessment & Plan: Resume home meds Qualifiers: Qualified Codes: I10 - Essential (primary) hypertension (7) Chronic kidney disease Status: Chronic Assessment & Plan: Baseline creatinine in clinic appears to be around 1.3 (8) DVT prophylaxis Status: Acute Assessment & Plan: Enoxaparin (9) Tobacco abuse Status: Chronic Assessment & Plan: 10/10: Continue with nicotine replacement, discussed the need for cessation JAYLIN BARRON MD Oct 10, 2022 17:58
[2022-10-10] MEDS ORDERED: KCL 20 MEQ TAB (K-DUR) PO NR (18:00)
[2022-10-10 20:27] VITALS: BP 172/81
[2022-10-10 23:55] VITALS: BP 158/81
[2022-10-11] MEDS: ACETAMINOPHEN 500 MG TAB (TYLENOL) PO PRN (04:25)
[2022-10-11 04:26] VITALS: BP 160/75
[2022-10-11] MEDS: PIPERACILLIN SODIUM/TAZOBACTAM 4.5 GM in NS (IVPB) 100 ML IV SCH (04:26)
[2022-10-11] MEDS: inSUlin ASPART (NovoLOG) 1 UNIT/0.01 ML (CHARGE PER UNIT) SC SCH ×2 (04:26→12:51)
[2022-10-11 04:50] LABS: BASOPHILS # (AUTO) 0.1 10^3/uL (0.0-0.1); BASOPHILS % (AUTO) 1 % (0-10); EOSINOPHILS # (AUTO) 0.3 10^3/uL (0.0-0.3); EOSINOPHILS % (AUTO) 2 % (0-10); HEMATOCRIT 47 % (40-54); HEMOGLOBIN 15.1 g/dL (13.3-17.7); LYMPHOCYTES % (AUTO) 6 % (12-44); MEAN CORPUSCULAR HEMOGLOBIN 31 pg (25-34); MEAN CORPUSCULAR HGB CONC 32 g/dL (32-36); MEAN CORPUSCULAR VOLUME 95 fL (80-99); MEAN PLATELET VOLUME 10.3 fL (9.0-12.2); MONOCYTES # (AUTO) 1.4 10^3/uL (0.0-1.0); MONOCYTES % (AUTO) 9 % (0-12); NEUTROPHILS % (AUTO) 82 % (42-75); PLATELET COUNT 164 10^3/uL (130-400)
[2022-10-11 05:16] LABS: ALBUMIN 2.9 GM/DL (3.2-4.5)
[2022-10-11 05:17] LABS: POTASSIUM 3.5 MMOL/L (3.6-5.0)
[2022-10-11 05:18] LABS: CALCIUM 8.9 MG/DL (8.5-10.1)
[2022-10-11 05:19] LABS: TOTAL PROTEIN 5.9 GM/DL (6.4-8.2)
[2022-10-11 05:21] LABS: BILIRUBIN,TOTAL 0.6 MG/DL (0.1-1.0)
[2022-10-11 05:23] LABS: CREATININE SERUM 1.01 MG/DL (0.60-1.30)
[2022-10-11 07:23] VITALS: BP 161/75
[2022-10-11] MEDS ORDERED: lisINopril 40 MG (PRINIVIL) TABLET PO SCH (09:00)
[2022-10-11] MEDS: OMEGA 3 (FISH OIL) 1000 MG CAP PO SCH (09:55)
[2022-10-11] MEDS: amLODIPine 10 MG (NORVASC) TAB PO SCH (09:56)
[2022-10-11] MEDS: FUROSEMIDE 40 MG (LASIX) TAB PO SCH (09:56)
[2022-10-11] MEDS: ASPIRIN E.C. 81 MG (ECOTRIN) TAB PO SCH (09:57)
[2022-10-11] MEDS: ROSUVASTATIN 20 MG (CRESTOR) TABLET PO SCH (09:57)
[2022-10-11 11:32] VITALS: BP 197/95
--- NOTE | 2022-10-11 12:44 | Discharge Summary ---
Diagnosis/Chief Complaint Date of Admission Oct 08, 2022 at 11:09 Date of Discharge 10/11/22 Admission Diagnosis Admission Diagnosis See problem list Discharge Diagnosis See below Problems/Diagnosis: (1) Sepsis Assessment & Plan: Secondary to cellulitis 10/10: Cellulitis improving, Will continue IV antibiotics, Leukocytosis trending down Qualifiers: Qualified Codes: A41.9 - Sepsis, unspecified organism Status: Acute (2) Cellulitis of right lower extremity Assessment & Plan: Started on Zosyn and Vancomycin on admit. Mild improvement t art. 10/11: Transitioned to PO antibiotics Status: Acute (3) Hypoxemia Assessment & Plan: Uncertain etiology, not on home O2, possibly some pulmonary edema, resume home lasix and monitor closely. 10/10: Titrate as tolerated, likely has underlying COPD due to [employer] tobacco use 10/11: Home O2 study done and he qualifies for 1 LPM Status: Acute (4) Renal insufficiency Assessment & Plan: Suspect secondary to sepsis and hypovolemia from poor intake. Will give IVF and monitor closely given pulmonary edema. 10/09 stable, baseline creatinine in clinic appears to be 1.3, will stop IVF. Status: Resolved Resolution Date/Time: 10/10/22 @ 17:58 (5) Diabetes mellitus, type 2 Assessment & Plan: Diabetic diet, sliding scale insulin. Pt declining insulin, requesting home med, restarted. Status: Chronic (6) Hypertension Assessment & Plan: Resume home meds Qualifiers: Qualified Codes: I10 - Essential (primary) hypertension Status: Chronic (7) Chronic kidney disease Assessment & Plan: Baseline creatinine in clinic appears to be around 1.3 Status: Chronic (8) DVT prophylaxis Assessment & Plan: Enoxaparin Status: Acute (9) Tobacco abuse Assessment & Plan: 10/10: Continue with nicotine replacement, discussed the need for cessation Status: Chronic Chief Complaint/HPI Chief Complaint/HPI Pt states he came to the hospital because "I was being stupid". states he was incoherent and shaking, his blood sugar was 215. Started Saturday morning, but worse today, was trying to drink out of his medicine bottle, couldn't answer simple questions. He was shaking but they didn't think to take his temperature. He was just wanting to sleep, hard to wake up. noticed large red raymond on leg Saturday morning. Discharge Summary-Simple/Stand Consultations Discharge Physical Examination Allergies: Coded Allergies: Sulfa (Sulfonamide Antibiotics) (Verified Allergy, Severe, Shortness of Breath, 10/08/22) Vitals & I&Os Vital Sign - Last 12Hours Date Time Temp Pulse Resp B/P (MAP) Pulse Ox O2 Delivery O2 Flow Rate FiO2 10/11/22 11:32 36.3 67 20 197/95 (129) 93 Nasal Cannula 1.00 Intake and Output 10/11/22 00:00 Intake Total 1300 ml Output Total 780 ml Balance 520 ml General Appearance: Alert, Oriented X3, No Acute Distress Respiratory: Normal Air Movement, Other (basilar wheezing, normal work of breathing) Cardiovascular: Regular Rate, No Murmurs Abdominal: Normal Bowel Sounds, Soft, No Tenderness Extremities: Other (2+ pitting edema in RLE, erythema reciding from line, not as ttp) Neuro: Normal Speech Hospital Course See final discharge diagnosis. Radiology Reviewed CT head 10/08/22: IMPRESSION: 1. No acute intracranial process. 2. Age-appropriate atrophy. 3. Decreased attenuation of the periventricular white matter which is nonspecific, however, likely reflects senescent change and/or chronic small vessel ischemic disease. If there is high clinical concern for an acute CVA, further evaluation with MRI should be considered. CXR 10/08/22: IMPRESSION: Cardiomegaly and mild central pulmonary venous c ongestion. Discharge Condition at discharge stable Instructions to patient/family Please see electronic discharge instructions given to patient. Discharge Medications Reviewed and agree with Discharge Medication list on patient's Discharge Instruction sheet JAYLIN BARRON MD Oct 11, 2022 12:44
[2022-10-11] MEDS ORDERED: AMOX-356 PO (12:48)
[2022-10-11] MEDS ORDERED: CARV12.53 PO (12:48)
--- NOTE | 2022-10-11 12:50 | Discharge Summary ---
Discharge Inst-[facility] Discharge Medications New, Converted or Re-Newed RX: Transmitted to Pharmacy New Medications: Amoxicillin/Potassium Clav (Augmentin Xr 1,000-62.5 Tab) 1,000 Mg-62.5 Mg T ab.er.12h 1 EACH PO BID for 7 Days, #14 TAB Carvedilol (Carvedilol) 12.5 Mg Tablet 25 MG PO BID, #60 TAB Continued Medications: Amlodipine Besylate (Amlodipine Besylate) 10 Mg Tablet 10 MG PO DAILY, TAB Aspirin (Aspirin EC) 81 Mg Tablet.dr 81 MG PO DAILY, TAB Furosemide (Furosemide) 40 Mg Tablet 40 MG PO DAILY, TAB Ketotifen Fumarate (Zaditor) 0.025 % (0.035 %) Drops 1 DROP OS BID PRN for DRY EYES, DROPS Linagliptin (Tradjenta) 5 Mg Tablet 5 MG PO DAILY, TAB Lisinopril (Lisinopril) 40 Mg Tablet 40 MG PO DAILY, TAB Mv-Min/Folic/K1/Lycopen/Lutein (Centrum Men 50 Plus Minis Tab) 150 Mcg-30 Mcg- 300 Mcg-150 Mcg Tablet 1 EACH PO DAILY, TAB [place]-3/Dha/Epa/Fish Oil (Fish Oil 1,400 mg Softgel) 850 Mg-1,400 Mg Capsule 1 EACH PO DAILY, CAP Rosuvastatin Calcium (Rosuvastatin Calcium) 20 Mg Tablet 20 MG PO DAILY, TAB Vitamin B Complex (B Complex) 1 Each Tablet 1 EACH PO DAILY, TAB Discontinued Medications: Nebivolol HCl (Bystolic) 10 Mg Tab 10 MG PO DAILY, TAB Patient Instructions Goal/Follow Up Appt: Next week with Dr Toro in [place] Patient Instructions: - Make sure you complete your antibiotics, would recommend taking an OTC probiotic with your antibiotics - Monitor redness and pain Activity & Diet Discharge Diet: Cardiac Diet Activity as Tolerated: Yes Copy Copies To 1: Skylar BECKER HOLLY R MD Oct 11, 2022 12:50
[2022-10-11] MEDS: VANCOMYCIN 1500MG/300ML PREMIX IV SCH (12:51)
[2022-10-11 17:20] VITALS: BP 197/95
--- NOTE | 2022-10-11 17:42 | Physician Query-Final Dx ---
BLAIRE WHEELER 10/11/22 1742: Final Diagnosis Give Final Diagnosis Please give Final Diagnosis The medical record reflects the following clinical evidence: Clinical Indicators: Documentation of "Hypoxia", 02 sat 90% on RA on admission (P/F= [phone]) started on 02 o2 sats 92-94% on 2L (P/J=[phone]), RR 20 on admission has been mostly 18-20 documentation of shortness of air with exertion, has been on 2 L since admission titrated down to 1 but not able to titrate off, will possibly need home 02, Risk Factor(s): Not on home 02, "possible pulmonary edema", Sepsis due to cellulitis, Treatment: Supplemental 02 at 1 to 2 liters, Respiratory monitoring, Lasix and IV ABX Acute respiratory failure with hypoxia, Present on admission Other explanation of clinical findings Unable to determine (no explanation for clinical findings) Please clarify and document your clinical opinion in the progress notes and discharge summary including the definitive and/or presumptive diagnosis, (susp ected or probable), related to the above clinical findings. Please include clinical findings supporting your diagnosis. Blaire Wheeler, MSN, RN Clinical Infection Control Manager [phone] [email or web address] JAYLIN BARRON MD 10/11/221945: Final Diagnosis Give Final Diagnosis Yes acute respiratory failure due to hypoxia present on admission BLAIRE WHEELER Oct 11, 2022 17:42 JAYLIN BARRON MD Oct 11, 2022 19:46
[2022-10-12] MEDS ORDERED: TROUGH ORDER-PHARMACY XX NR
== END 2022-10-11 17:50 | disposition home or self-care (01) | DRG 871 ==
LOC: ER FS 06:44 → 4TH 11:09
PROVIDERS: ADMIT Family Medicine; ATTEND Family Medicine
DX: A41.9 Sepsis, unspecified organism (principal); J96.01 Acute respiratory failure with hypoxia; L03.115 Cellulitis of right lower limb; F17.210 Nicotine dependence, cigarettes, uncomplicated; Z79.82 Long term (current) use of aspirin; Z79.899 Other long term (current) drug therapy; E78.5 Hyperlipidemia, unspecified; N18.9 Chronic kidney disease, unspecified; E11.22 Type 2 diabetes mellitus with diabetic chronic kidney disease; I12.9 Hypertensive chronic kidney disease with stage 1 through stage 4 chronic kidney disease, or unspecified chronic kidney disease
CPT/HCPCS: 36415; 70450; 71045; 80053; 80202; 80306; 80320; 81000; 82947; 83605; 83735; 83880; 84484; 85007; 85025; 85027; 85610; 85730; 87040; 87088; 93005; 94760; 94761